=== PATIENT | female | born 1995 | race Caucasian/White ===

== ENCOUNTER → 2017-11-18 | Outpatient (CLI) | payer BC, SELFPAY ==
[~2017-11-18] MED LIST: BIRTH CONTROL; BIRTH CONTROL PILLS; CAMRESE 0.15-01 EACH PO; CLOBETASOL; Depo-Prove150 MG/11 IM; EXCEDRIN MIGRAINE; FIORICET 50-321 EACH PO; FLUC150A PO; NAPR500 PO; PROP60 PO
[2017-11-18 12:59] LABS: BASOPHILS ABSOLUTE AUTO 0.07 K/mm3 (0.00-0.23); BASOPHILS PERCENT AUTO 1 % (0-2); EOSINOPHILS ABSOLUTE AUTO 0.17 K/mm3 (0.00-0.68); EOSINOPHILS PERCENT AUTO 2 % (0-6); Hematocrit 40.8 % (33.0-51.0); Hemoglobin 13.6 g/dL (11.5-16.0); IMMATURE GRAN ABSOLUTE AUTO 0.02 K/mm3 (0.00-0.10); IMMATURE GRAN PERCENT AUTO 0 % (0-1); LYMPHOCYTES ABSOLUTE AUTO 2.68 K/mm3 (0.84-5.20); LYMPHOCYTES PERCENT AUTO 29 % (21-46); MONOCYTES ABSOLUTE AUTO 0.42 K/mm3 (0.16-1.47); MONOCYTES PERCENT AUTO 5 % (4-13); Mean Corpuscular HGB 29.3 pg (26.0-34.0); Mean Corpuscular HGB Conc 33.3 g/dL (31.5-36.5); Mean Corpuscular Volume 88 fL (80-100); Mean Platelet Volume 10.1 fL (9.1-12.4); NEUTROPHILS ABSOLUTE AUTO 5.91 K/mm3 (1.96-9.15); NEUTROPHILS PERCENT AUTO 64 % (41-73); Platelet Count 422 K/mm3 (150-400); RDW Coefficient Variation 12.4 % (11.7-14.2); Red Blood Cell Count 4.64 M/mm3 (3.80-5.20); White Blood Cell Count 9.27 K/mm3 (4.00-11.30)
[2017-11-18 13:17] LABS: Alanine Aminotransfer (ALT/SGP 32 U/L (12-78); Albumin, Blood 3.7 g/dL (3.4-5.0); Albumin/Globulin Ratio 0.9 (0.8-1.8); Alk Phos 96 U/L (50-136); Anion Gap 7 mmol/L (6-16); Aspartate Aminotrans (AST/SGOT 32 U/L (12-37); Bilirubin, Total 0.3 mg/dL (0.1-1.0); Blood Urea Nitrogen 13 mg/dL (8-24); Bun/Creatinine Ratio 20.8 (12.0-20.0); CO2, Blood 27 mmol/L (21-32); Calcium, Blood 9.3 mg/dL (8.5-10.1); Chloride, Blood 104 mmol/L (98-108); Creatinine, Blood 0.62 mg/dL (0.40-1.00); Globulin, Blood 3.9 g/dL (2.2-4.0); Glomerular Filtration Rate >60 (60-); Glucose, Blood 98 mg/dL (70-99); Potassium, Blood 3.9 mmol/L (3.5-5.5); Sodium, Blood 138 mmol/L (136-145); Total Protein, Blood 7.6 g/dL (6.4-8.2)
== END ==
LOC: OLS 12:21
PROVIDERS: Family Medicine
DX: R10.84 Generalized abdominal pain (principal)
CPT/HCPCS: 80053; 85025

== ENCOUNTER 2018-04-17 10:48 | Day surgery (SDC) | payer BC, SELFPAY ==
[~2018-04-17] VITALS: Ht 162.6 cm; Wt 85.3 kg
[~2018-04-17 10:48] MED LIST changes: -BIRTH CONTROL
== END 2018-04-17 22:46 | disposition home or self-care (01) ==
LOC: ORSCMMR 10:48 → ORD 12:30 → ORSCMMR 12:30
PROVIDERS: Internal Medicine Gastroenterology
PROC: 0DBE8ZX Excision of Large Intestine, Via Natural or Artificial Opening Endoscopic, Diagnostic (ICD-10-PCS; principal; 2018-04-17 12:30)
DX: K92.1 Melena (principal); K64.8 Other hemorrhoids; K52.9 Noninfective gastroenteritis and colitis, unspecified; R11.2 Nausea with vomiting, unspecified; E66.9 Obesity, unspecified; Z68.32 Body mass index [BMI] 32.0-32.9, adult; Z79.899 Other long term (current) drug therapy
CPT/HCPCS: 84702; 88305; J2405; J7120

== ENCOUNTER 2018-05-03 15:03 | Emergency (ER) | payer BC, SELFPAY ==
[~2018-05-03] VITALS: Ht 175.3 cm; Wt 81.2 kg
[2018-05-03] MEDS ORDERED: BIRTH CONTROL (15:16)
[2018-05-03 15:20] LABS: Calcium, Ionized (POC) 1.12 mmol/L (1.10-1.46); Chloride (POC) 108 mmol/L (98-108); Glucose (ISTAT POC) 95 mg/dL (70-99); Hemoglobin (POC) 11.6 g/dL (12.0-16.0); Potassium (POC) 3.7 mmol/L (3.5-5.5); Sodium (POC) 141 mmol/L (135-148); Total CO2 (POC) 22 mmol/L (21-32)
[2018-05-03 16:32] LABS: BASOPHILS ABSOLUTE AUTO 0.08 K/mm3 (0.00-0.23); BASOPHILS PERCENT AUTO 1 % (0-2); EOSINOPHILS ABSOLUTE AUTO 0.38 K/mm3 (0.00-0.68); EOSINOPHILS PERCENT AUTO 3 % (0-6); Hemoglobin 12.2 g/dL (11.5-16.0); IMMATURE GRAN ABSOLUTE AUTO 0.03 K/mm3 (0.00-0.10); IMMATURE GRAN PERCENT AUTO 0 % (0-1); LYMPHOCYTES ABSOLUTE AUTO 2.88 K/mm3 (0.84-5.20); LYMPHOCYTES PERCENT AUTO 25 % (21-46); MONOCYTES ABSOLUTE AUTO 0.71 K/mm3 (0.16-1.47); MONOCYTES PERCENT AUTO 6 % (4-13); Mean Corpuscular HGB 28.9 pg (26.0-34.0); Mean Corpuscular Volume 88 fL (80-100); Mean Platelet Volume 10.4 fL (9.1-12.4); NEUTROPHILS ABSOLUTE AUTO 7.39 K/mm3 (1.96-9.15); NEUTROPHILS PERCENT AUTO 64 % (41-73); Platelet Count 401 K/mm3 (150-400); RDW Coefficient Variation 12.6 % (11.7-14.2); RDW Standard Deviation 39.9 fL (35.1-46.3); Red Blood Cell Count 4.22 M/mm3 (3.80-5.20); White Blood Cell Count 11.47 K/mm3 (4.00-11.30)
== END 2018-05-03 16:45 | disposition home or self-care (01) ==
LOC: ER 15:03
PROVIDERS: Internal Medicine
DX: R55 Syncope and collapse (principal); Z79.899 Other long term (current) drug therapy
CPT/HCPCS: 36415; 80047; 85014; 85025; 93005; 93010; 99283

== ENCOUNTER → 2018-11-19 | Outpatient (CLI) | payer BC, SELFPAY ==
[~2018-11-19] MED LIST changes: +BIRTH CONTROL
[2018-11-19 12:43] LABS: BASOPHILS ABSOLUTE AUTO 0.07 K/mm3 (0.00-0.23); BASOPHILS PERCENT AUTO 1 % (0-2); EOSINOPHILS ABSOLUTE AUTO 0.15 K/mm3 (0.00-0.68); EOSINOPHILS PERCENT AUTO 1 % (0-6); Hemoglobin 13.9 g/dL (11.5-16.0); IMMATURE GRAN ABSOLUTE AUTO 0.04 K/mm3 (0.00-0.10); IMMATURE GRAN PERCENT AUTO 0 % (0-1); LYMPHOCYTES ABSOLUTE AUTO 3.05 K/mm3 (0.84-5.20); LYMPHOCYTES PERCENT AUTO 28 % (21-46); MONOCYTES ABSOLUTE AUTO 0.45 K/mm3 (0.16-1.47); MONOCYTES PERCENT AUTO 4 % (4-13); Mean Corpuscular HGB 29.3 pg (26.0-34.0); Mean Corpuscular HGB Conc 33.1 g/dL (31.5-36.5); Mean Corpuscular Volume 88 fL (80-100); Mean Platelet Volume 9.9 fL (9.1-12.4); NEUTROPHILS ABSOLUTE AUTO 7.28 K/mm3 (1.96-9.15); NEUTROPHILS PERCENT AUTO 66 % (41-73); Platelet Count 429 K/mm3 (150-400); RDW Coefficient Variation 12.2 % (11.7-14.2); Red Blood Cell Count 4.75 M/mm3 (3.80-5.20); White Blood Cell Count 11.04 K/mm3 (4.00-11.30)
[2018-11-19 13:38] LABS: Alanine Aminotransfer (ALT/SGP 20 U/L (12-78); Albumin, Blood 3.6 g/dL (3.4-5.0); Albumin/Globulin Ratio 0.9 (0.8-1.8); Alk Phos 106 U/L (50-136); Anion Gap 7 mmol/L (6-16); Aspartate Aminotrans (AST/SGOT 15 U/L (12-37); Bilirubin, Total 0.3 mg/dL (0.1-1.0); Blood Urea Nitrogen 11 mg/dL (8-24); Bun/Creatinine Ratio 15.4 (12.0-20.0); CO2, Blood 27 mmol/L (21-32); Calcium, Blood 8.8 mg/dL (8.5-10.1); Chloride, Blood 105 mmol/L (98-108); Creatinine, Blood 0.71 mg/dL (0.40-1.00); Globulin, Blood 3.9 g/dL (2.2-4.0); Glomerular Filtration Rate >60 (60-); Glucose, Blood 88 mg/dL (70-99); Potassium, Blood 3.8 mmol/L (3.5-5.5); Sodium, Blood 139 mmol/L (136-145); Total Protein, Blood 7.5 g/dL (6.4-8.2)
== END | disposition home or self-care (01) ==
LOC: LAB SHORT 12:28 → LAB 12:28
PROVIDERS: Nurse Practitioner
DX: N93.8 Other specified abnormal uterine and vaginal bleeding (principal)
CPT/HCPCS: 80053; 84443; 85025

== ENCOUNTER → 2018-11-26 | Outpatient (CLI) | payer BC, SELFPAY | END | disposition home or self-care (01) | LOC: LAB 08:20 → LAB SHORT 08:20 | PROVIDERS: Nurse Practitioner | DX: Z01.419 Encounter for gynecological examination (general) (routine) without abnormal findings (principal) | CPT/HCPCS: G0145 ==

== ENCOUNTER → 2019-02-04 | Outpatient (CLI) | payer BC ==
[2019-02-04 12:07] LABS: Anion Gap 9 mmol/L (6-16); Blood Urea Nitrogen 10 mg/dL (8-24); Bun/Creatinine Ratio 16.4 (12.0-20.0); CO2, Blood 24 mmol/L (21-32); Calcium, Blood 8.7 mg/dL (8.5-10.1); Chloride, Blood 106 mmol/L (98-108); Creatinine, Blood 0.61 mg/dL (0.40-1.00); Glomerular Filtration Rate >60 (60-); Glucose, Blood 154 mg/dL (70-99); Potassium, Blood 3.5 mmol/L (3.5-5.5); Sodium, Blood 139 mmol/L (136-145)
== END | disposition home or self-care (01) ==
LOC: LAB SHORT 11:30 → LAB 11:30 → EKG 11:30
PROVIDERS: Orthopaedic Surgery
DX: R00.0 Tachycardia, unspecified (principal)
CPT/HCPCS: 36415; 80048

== ENCOUNTER 2019-02-23 09:30 | Day surgery (SDC) | payer BC, SELFPAY ==
[~2019-02-23] VITALS: Ht 160 cm; Wt 73.1 kg
[~2019-02-23 09:30] MED LIST changes: +ALBU90OI6 INH; +CAMRESE 0.15-01 EAC1 PO; +Excedrin Extra1 EACH PO
--- NOTE | 2019-02-23 09:31 | NUR ---
02/23/19 0931 Samantha Joshi BLOOD DRAWN AND ANTICOAG ADDED TO PRP, DELIVERED TO OR AND SPUN.
[2019-02-23] MEDS ORDERED: Diclofenac Pota50 MG (09:54)
[2019-02-23] MEDS ORDERED: ESCI10 (09:54)
--- NOTE | 2019-02-23 13:01 | NUR ---
02/23/19 1301 Anabelle Vogel REPORT RECEIVED FROM DEANN FELIZ. PATIENT STABLE BUT SLIGHT DRY COUGH AND POST ANESTHESIA SHIVERS. PATIENT STATES NO TO PAIN AND NAUSEA WHEN ASKED AND TELLS ME SHE DOESN'T FEEL COLD SHE IS SHIVERING. PATIENT WAS ABLE TO TRANSFER TO RECLINER WITH MINIMAL ASSISTANCE AND WAS MADE COMFORTABLE AND GIVEN WARM BLANKETS. BROUGHT FAMILY, MOM AND DAD, BACK AND PATIENT GIVEN LIQUIDS TO DRINK. PATIENT STATES NO NEEDS AT THIS TIME. DR PEREIRA CAME INTO STEPDOWN AND SPOKE WITH PATIENT AND MOM. PATIENT STABLE AT THIS TIME, NO PAIN, NO NAUSEA, NO PROBLEMS. WILL PREPARE FOR DISCHARGE
== END 2019-02-23 13:50 | disposition home or self-care (01) ==
LOC: ORSCSDS 09:30
PROVIDERS: Orthopaedic Surgery
PROC: 0LQ14ZZ Repair Right Shoulder Tendon, Percutaneous Endoscopic Approach (ICD-10-PCS; principal; 2019-02-23 11:00)
DX: M75.111 Incomplete rotator cuff tear or rupture of right shoulder, not specified as traumatic (principal); M75.51 Bursitis of right shoulder; Z79.899 Other long term (current) drug therapy; Z79.82 Long term (current) use of aspirin
CPT/HCPCS: C1713; J0171; J0690; J1100; J1885; J2250; J2405; J2704; J2710; J2795; J3010; J7120

== ENCOUNTER → 2020-01-05 | Outpatient (CLI) | payer BC ==
[~2020-01-05] MED LIST changes: +Diclofenac Pota50 MG; +ESCI10
== END | disposition home or self-care (01) ==
LOC: LAB SHORT 16:34 → LAB 16:34
PROVIDERS: Nurse Practitioner
DX: Z01.419 Encounter for gynecological examination (general) (routine) without abnormal findings (principal)
CPT/HCPCS: G0145

== ENCOUNTER 2021-11-15 11:54 | Emergency (ER) | payer OTHER ==
[~2021-11-15] VITALS: Ht 160 cm; Wt 86.2 kg
== END 2021-11-15 12:59 | disposition home or self-care (01) ==
LOC: ER 11:54
DX: S06.0X9A Concussion with loss of consciousness of unspecified duration, initial encounter (principal); W22.8XXA Striking against or struck by other objects, initial encounter
CPT/HCPCS: 99283

== ENCOUNTER 2022-08-11 00:11 | Observation (INO) | payer BC ==
[~2022-08-11] VITALS: Ht 160 cm; Wt 87.5 kg
[2022-08-11] MEDS ORDERED: OMEP20ER PO (00:17)
[2022-08-11 00:45] LABS: BASOPHILS PERCENT AUTO 1 % (0-2); EOSINOPHILS ABSOLUTE AUTO 0.31 K/mm3 (0.00-0.68); EOSINOPHILS PERCENT AUTO 2 % (0-6); Hematocrit 38.9 % (33.0-51.0); Hemoglobin 13.2 g/dL (11.5-16.0); Mean Corpuscular HGB 27.6 pg (26.0-34.0); Mean Corpuscular HGB Conc 33.9 g/dL (31.5-36.5); Mean Corpuscular Volume 81 fL (80-100); Mean Platelet Volume 9.7 fL (9.1-12.4); Platelet Count 443 K/mm3 (150-400); RDW Coefficient Variation 12.6 % (11.7-14.2); RDW Standard Deviation 37.3 fL (35.1-46.3); Red Blood Cell Count 4.79 M/mm3 (3.80-5.20); White Blood Cell Count 14.25 K/mm3 (4.00-11.30)
[2022-08-11 00:47] LABS: IMMATURE GRAN ABSOLUTE AUTO 0.03 K/mm3 (0.00-0.10); IMMATURE GRAN PERCENT AUTO 0 % (0-1); LYMPHOCYTES ABSOLUTE AUTO 4.03 K/mm3 (0.84-5.20); LYMPHOCYTES PERCENT AUTO 28 % (21-46); MONOCYTES ABSOLUTE AUTO 0.69 K/mm3 (0.16-1.47); MONOCYTES PERCENT AUTO 5 % (4-13); NEUTROPHILS ABSOLUTE AUTO 9.09 K/mm3 (1.96-9.15); NEUTROPHILS PERCENT AUTO 64 % (41-73)
[2022-08-11 01:07] LABS: Beta HCG, Quantitative, Serum <1 mIU/mL (0-3); Magnesium, Blood 2.1 mg/dL (1.6-2.4)
[2022-08-11 01:10] LABS: Alanine Aminotransfer (ALT/SGP 30 U/L (12-78); Albumin, Blood 3.2 g/dL (3.4-5.0); Albumin/Globulin Ratio 0.7 (0.8-1.8); Alk Phos 161 U/L (50-136); Anion Gap 9 mmol/L (6-16); Aspartate Aminotrans (AST/SGOT 18 U/L (12-37); Bilirubin, Direct <0.1 mg/dL (0.0-0.3); Bilirubin, Indirect Unable to Calculate mg/dL (0.1-0.7); Bilirubin, Total 0.2 mg/dL (0.1-1.0); Blood Urea Nitrogen 5 mg/dL (8-24); Bun/Creatinine Ratio 8.5 (12.0-20.0); CO2, Blood 25 mmol/L (21-32); Calcium, Blood 8.8 mg/dL (8.5-10.1); Chloride, Blood 107 mmol/L (98-108); Creatinine, Blood 0.59 mg/dL (0.40-1.00); Globulin, Blood 4.3 g/dL (2.2-4.0); Glomerular Filtration Rate 127 (60-); Glucose, Blood 115 mg/dL (70-99); Potassium, Blood 3.4 mmol/L (3.5-5.5); Sodium, Blood 141 mmol/L (136-145); Total Protein, Blood 7.5 g/dL (6.4-8.2)
[2022-08-11 01:39] LABS: Influenza A, PCR NEGATIVE (NEGATIVE); Influenza B, PCR NEGATIVE (NEGATIVE); Resp Syncytial Virus, PCR NEGATIVE (NEGATIVE); SARS-Cov-2 (COVID-19) PCR, MMC NEGATIVE (NEGATIVE)
--- NOTE | 2022-08-11 08:33 | NUR ---
PATIENT CAME FROM ER TODAY AT 0825. PATIENT IS A&OX4. VS ARE WNL AND IS ON RA. PATIENT REPORTS A 5/10 PAIN AT THIS TIME AND IS MANAGED WITH IV MORPHINE. ABD IS TENDER TO TOUCH AND HAS HYPOACTIVE BOWEL TONES. SHE IS VOIDING AND PASSING GAS THOUGH. FIANCE IS AT BEDSIDE. CALL LIGHT WITHIN REACH. PATIENT IS NPO.
--- NOTE | 2022-08-11 12:12 | NUR ---
PATIENT JUST LEFT FOR THE OR.
--- NOTE | 2022-08-11 14:49 | NUR ---
PATIENT CAME BACK FROM PACU TODAY AT 1440. POD 0 LAP GREGORIA PATIENT IS A&OX4. VS ARE WNL AND IS ON RA. PATIENT DENIES PAIN AT THIS TIME. SHE HAS 3 LAP SITES ON HER ABD WITH 2 OUT OF 3 HAVING SCANT BLOOD BUT ARE OTHERWISE C/D/I. ABD IS SOFT BUT TENDER TO TOUCH. WATER AND CRACKERS ARE AT BEDSIDE FOR WHEN THE PATIENT WAKES UP AGAIN. FAMILY AT BEDSIDE. CALL LIGHT WITHIN REACH.
--- NOTE | 2022-08-11 17:55 | NUR ---
SHIFT SUMMARY: POD 0 LAP GREGORIA PATIENT IS A&OX4. VS ARE WNL AND IS ON RA. PATIENT REPORTS 8/10 PAINFUL WITH NAUSEA BUT IV DILAUDID AND PHENERGAN THAT HAS MANAGED PAIN/NAUSEA. SHE HAS 4 ABD LAP SITES WITH STERI STRIPS THAT HAVE SCANT AMOUNT OF BLOOD BUT OTHERWISE ARE INTACT. SHE TOLERATES VERY SMALL SIPS OF WATER. PATIENT IS A SBA TO THE BATHROOM. SHE IS VOIDING/PASSING SMALL AMOUNTS OF GAS. CALLS APPROPRIATELY. CALL LIGHT WITHIN REACH. THE PLAN IS FOR HER TO HAVE HER NAUSEA AND PAIN MANAGED FOR TOMORROW. POSSIBLE DISCHARGE IN THE MORNING IF NAUSEA AND PAIN IS MANAGED.
--- NOTE | 2022-08-12 05:11 | NUR ---
SHIFT SUMMARY PT A&OX4, PLEASANT AND COOPERATIVE. NO ACUTE CHANGES, HAS BEEN A LITTLE TACHYCARDIC, BUT PT STATES THAT'S NORMAL FOR HER. MEDICATED FOR PAIN PER EMAR. TOLERATING PO INTAKE, NO NAUSEA. INDEPENDENT IN ROOM. STERI STRIPS IN THE RLQ HAVE SCANT AMOUNT OF DRIED BLOOD ON THEM, OTHERS C/D/I. CALLS APPROPRIATELY CALL LIGHT WITHIN REACH.
[2022-08-12] MEDS ORDERED: OXYC10TA19 PO (10:52)
--- NOTE | 2022-08-12 11:39 | NUR ---
DISCHARGING DC'D IV, CATHETER INTACT. REVIEWED DC INSTRUCTIONS W/PT; VERBALIZED UNDERSTANDING. PT AMBULATING IN ROOM, GATHERING POSSESSIONS. WILL CALL FOR WC WHEN RIDE ARRIVES.
--- NOTE | 2022-08-12 12:48 | NUR ---
DISCHARGED PT LEFT UNIT IN WC W/POSSESSIONS AND DC PAPERWORK IN HAND.
== END 2022-08-12 12:01 | disposition home or self-care (01) ==
LOC: ER 00:11 → SURS 00:12
PROVIDERS: Student in an Organized Health Care Education/Training Program; ADMIT Surgery
DX: K80.10 Calculus of gallbladder with chronic cholecystitis without obstruction (principal); E87.6 Hypokalemia; G43.909 Migraine, unspecified, not intractable, without status migrainosus; K21.9 Gastro-esophageal reflux disease without esophagitis; E66.9 Obesity, unspecified; Z68.34 Body mass index [BMI] 34.0-34.9, adult; Z79.82 Long term (current) use of aspirin; Z20.822 Contact with and (suspected) exposure to COVID-19
CPT/HCPCS: 0241U; 36415; 74177; 76705; 80048; 80076; 83690; 83735; 84702; 85025; 88304; 96361; 96365; 96366; 96375; 96376; 99284-25; A9270; G0378; J0690; J1100; J1170; J1885; J2250; J2270; J2405; J2543; J2550; J2704; J2795; J3010; J7030; J7120; Q9967

== ENCOUNTER → 2024-04-09 | Outpatient (CLI) | payer BC ==
[~2024-04-09] MED LIST changes: +METO10 PO; +OMEP20ER PO; +OXYC10TA19 PO; +PRENATAL TABLE1 EAC2; +PROG100; +PROM12.5S PR
[2024-04-09 16:42] LABS: Source, Urine Clean Catch
[2024-04-09 19:01] LABS: Appearance, Urine Clear (Clear); Bilirubin, Urine Neg (Neg); Blood, Urine Neg (Neg); Glucose Qualitative, Urine Neg (Neg); Ketones, Urine Neg (Neg); Leukocyte Esterase, Urine Neg (Neg); Nitrite, Urine Neg (Neg); Protein, Urine Neg (Neg); Urobilinogen, Urine NORM (Normal)
[2024-04-09 19:05] LABS: BASOPHILS ABSOLUTE AUTO 0.09 K/mm3 (0.00-0.23); BASOPHILS PERCENT AUTO 1 % (0-2); EOSINOPHILS ABSOLUTE AUTO 0.15 K/mm3 (0.00-0.68); EOSINOPHILS PERCENT AUTO 1 % (0-6); Hematocrit 38.4 % (33.0-51.0); IMMATURE GRAN ABSOLUTE AUTO 0.05 K/mm3 (0.00-0.10); IMMATURE GRAN PERCENT AUTO 0 % (0-1); LYMPHOCYTES ABSOLUTE AUTO 2.79 K/mm3 (0.84-5.20); LYMPHOCYTES PERCENT AUTO 21 % (21-46); MONOCYTES ABSOLUTE AUTO 0.59 K/mm3 (0.16-1.47); MONOCYTES PERCENT AUTO 4 % (4-13); Mean Corpuscular HGB 28.4 pg (26.0-34.0); Mean Corpuscular HGB Conc 33.9 g/dL (31.5-36.5); Mean Corpuscular Volume 84 fL (80-100); Mean Platelet Volume 10.3 fL (9.1-12.4); NEUTROPHILS ABSOLUTE AUTO 9.92 K/mm3 (1.96-9.15); NEUTROPHILS PERCENT AUTO 73 % (41-73); Platelet Count 395 K/mm3 (150-400); RDW Coefficient Variation 12.7 % (11.7-14.2); RDW Standard Deviation 38.6 fL (35.1-46.3); Red Blood Cell Count 4.58 M/mm3 (3.80-5.20); White Blood Cell Count 13.59 K/mm3 (4.00-11.30)
[2024-04-09 19:13] LABS: Color, Urine Pale Yellow (P-Yellow)
[2024-04-12 08:17] LABS: HEPATITIS B SURFACE ANTIGEN Negative (Negative)
[2024-04-12 08:37] LABS: HIV 1,2 COMBO ANTIGEN/ANTIBODY Negative (Negative)
[2024-04-12 10:10] LABS: HEPATITIS C AB CIA INTERP Negative (Negative); HEPATITIS C ANTIBODY CIA INDEX 0.06 IV
== END ==
LOC: LAB SHORT 16:39 → LAB 16:39
PROVIDERS: Registered Nurse Community Health
DX: Z34.91 Encounter for supervision of normal pregnancy, unspecified, first trimester (principal)
CPT/HCPCS: 81003; 84443; 86803; 87086; 87340; 87389

== ENCOUNTER → 2024-04-13 | Outpatient (CLI) | payer BC ==
[2024-04-15 11:23] LABS: APTIMA MEDIA TYPE Urine; C. TRACHOMATIS BY TMA Negative (Negative); N. GONORRHOEAE BY TMA Negative (Negative); SPECIMEN SOURCE Urine
== END | disposition home or self-care (01) ==
LOC: LAB SHORT 13:17 → LAB 13:17
PROVIDERS: Registered Nurse Community Health
DX: Z34.91 Encounter for supervision of normal pregnancy, unspecified, first trimester (principal)
CPT/HCPCS: 87491; 87591

== ENCOUNTER 2024-04-20 01:13 | Emergency (ER) | payer BC ==
[~2024-04-20] VITALS: Ht 160 cm; Wt 93.9 kg
[~2024-04-20 01:13] MED LIST changes: -METO10 PO; -PRENATAL TABLE1 EAC2; -PROG100; -PROM12.5S PR
[2024-04-20] MEDS ORDERED: PROG100 (01:23)
[2024-04-20] MEDS ORDERED: PRENATAL TABLE1 EAC2 (01:23)
[2024-04-20] MEDS ORDERED: Metoclopramide HCl 5MG / ML 2ML Vial IV ONE (01:35)
[2024-04-20] MEDS ORDERED: D5W-NS 1,000 ML IV SCH (01:35)
[2024-04-20] MEDS ORDERED: DiphenhydrAMINE HCl 50 MG/ML 1ML Vial IV ONE (01:35)
[2024-04-20 02:04] LABS: Albumin/Globulin Ratio 0.7 (0.8-1.8); Bilirubin, Total 0.4 mg/dL (0.1-1.0); Bun/Creatinine Ratio 18.8 (12.0-20.0); Calcium, Blood 8.9 mg/dL (8.5-10.1); Creatinine, Blood 0.48 mg/dL (0.40-1.00); Globulin, Blood 4.2 g/dL (2.2-4.0); Magnesium, Blood 1.8 mg/dL (1.6-2.4); Potassium, Blood 3.9 mmol/L (3.5-5.5); Total Protein, Blood 7.2 g/dL (6.4-8.2)
[2024-04-20 02:08] LABS: BASOPHILS ABSOLUTE AUTO 0.06 K/mm3 (0.00-0.23); BASOPHILS PERCENT AUTO 0 % (0-2); EOSINOPHILS ABSOLUTE AUTO 0.04 K/mm3 (0.00-0.68); EOSINOPHILS PERCENT AUTO 0 % (0-6); Hemoglobin 13.5 g/dL (11.5-16.0); IMMATURE GRAN ABSOLUTE AUTO 0.13 K/mm3 (0.00-0.10); IMMATURE GRAN PERCENT AUTO 1 % (0-1); LYMPHOCYTES ABSOLUTE AUTO 0.75 K/mm3 (0.84-5.20); LYMPHOCYTES PERCENT AUTO 4 % (21-46); MONOCYTES ABSOLUTE AUTO 0.35 K/mm3 (0.16-1.47); MONOCYTES PERCENT AUTO 2 % (4-13); Mean Corpuscular HGB Conc 33.8 g/dL (31.5-36.5); Mean Corpuscular Volume 86 fL (80-100); Mean Platelet Volume 9.8 fL (9.1-12.4); NEUTROPHILS PERCENT AUTO 94 % (41-73); Platelet Count 308 K/mm3 (150-400); RDW Coefficient Variation 12.8 % (11.7-14.2); RDW Standard Deviation 39.7 fL (35.1-46.3); Red Blood Cell Count 4.66 M/mm3 (3.80-5.20); White Blood Cell Count 20.03 K/mm3 (4.00-11.30)
[2024-04-20] MEDS ORDERED: Mag Hydrox/AL Hydrox/Simeth 30 ML UDC PO ONE (02:20)
[2024-04-20] MEDS ORDERED: Famotidine 10 MG/ML 2ML Vial IV ONE (02:20)
[2024-04-20] MEDS ORDERED: Prochlorperazine Edisylate 10 mg Vial IV ONE (03:15)
[2024-04-20 03:23] LABS: Influenza A, PCR NEGATIVE (NEGATIVE); Influenza B, PCR NEGATIVE (NEGATIVE); Resp Syncytial Virus, PCR NEGATIVE (NEGATIVE); SARS-Cov-2 (COVID-19) PCR, MMC NEGATIVE (NEGATIVE)
[2024-04-20] MEDS ORDERED: Lactated Ringer's 1,000 ML IV ONE (04:25)
[2024-04-20] MEDS ORDERED: Ondansetron HCl 2 MG / ML 2ML Vial IV ONE (04:25)
[2024-04-20 05:15] VITALS: BP 108/65
[2024-04-20] MEDS ORDERED: PROM12.5S PR (06:35)
[2024-04-20] MEDS ORDERED: METO10 PO (06:35)
== END 2024-04-20 06:43 | disposition home or self-care (01) ==
LOC: ER 01:13
PROVIDERS: Student in an Organized Health Care Education/Training Program
DX: O99.611 Diseases of the digestive system complicating pregnancy, first trimester (principal); A08.4 Viral intestinal infection, unspecified; O99.281 Endocrine, nutritional and metabolic diseases complicating pregnancy, first trimester; E86.0 Dehydration; Z3A.11 11 weeks gestation of pregnancy; Z79.82 Long term (current) use of aspirin; Z79.899 Other long term (current) drug therapy
CPT/HCPCS: 0241U; 80053; 83690; 83735; 85025; 96361; 96374; 96375; 99284-25; A9270; J0780; J1200; J2405; J2765; J7042; J7120

== ENCOUNTER → 2024-08-24 | Outpatient (CLI) | payer BC ==
[~2024-08-24] MED LIST changes: +METO10 PO; +PRENATAL TABLE1 EAC2; +PROG100; +PROM12.5S PR
[2024-08-24 16:14] LABS: Hematocrit 34.7 % (33.0-51.0); Hemoglobin 11.5 g/dL (11.5-16.0)
== END ==
LOC: LAB 13:44 → LAB SHORT 13:44
PROVIDERS: Registered Nurse Community Health
DX: Z34.93 Encounter for supervision of normal pregnancy, unspecified, third trimester (principal)
CPT/HCPCS: 82950; 85014; 85018

== ENCOUNTER → 2024-10-21 | Outpatient (CLI) | payer BC ==
[~2024-10-21] MED LIST changes: +CRANBERRY215 MG PO; +K2-D3 MAX 180-1 EACH PO; +ZYRTEC10 M4 PO
== END | disposition home or self-care (01) ==
LOC: LAB 13:35 → LAB SHORT 13:35
DX: Z34.03 Encounter for supervision of normal first pregnancy, third trimester (principal)
CPT/HCPCS: 87081; 87150

== ENCOUNTER 2024-10-28 14:47 | Inpatient (IN) | payer BC ==
[~2024-10-28] VITALS: Ht 160 cm; Wt 110.7 kg
[2024-10-28] VITALS (29 sets, daily range): BP systolic 119–154; BP diastolic 68–94
[~2024-10-28 14:47] MED LIST changes: -CRANBERRY215 MG PO; -K2-D3 MAX 180-1 EACH PO; -ZYRTEC10 M4 PO
[2024-10-28] MEDS ORDERED: Lactated Ringer's 1,000 ML IV SCH ×2 (16:35)
[2024-10-28] MEDS ORDERED: ePHEDrine Sulfate 50 MG/ML 1ML Injection XX PRN (16:35)
[2024-10-28] MEDS ORDERED: FentaNYL 2mcg/ml-Bup 0.1% Epd 250 ML EPI PRN (16:35)
[2024-10-28] MEDS ORDERED: Acetaminophen 500 MG Tab PO PRN (16:40)
[2024-10-28] MEDS ORDERED: Ondansetron HCl 2 MG / ML 2ML Vial IV PRN (16:40)
[2024-10-28] MEDS ORDERED: Oxytocin 10 Unit / ML Vial IM PRN (16:40)
[2024-10-28] MEDS ORDERED: Misoprostol 200 MCG Tab BC PRN (16:40)
[2024-10-28] MEDS ORDERED: Carboprost Tromethamine 250 MCG/ML 1ML Amp IM PRN (16:40)
[2024-10-28] MEDS ORDERED: OXYTOCIN/RINGER'S LACTATE 500 ML IV PRN (16:40)
[2024-10-28] MEDS ORDERED: Methylergonovine Maleate 0.2MG / ML 1ML Amp IM PRN (16:40)
[2024-10-28] MEDS ORDERED: Misoprostol 200 MCG Tab PR PRN (16:40)
[2024-10-28] MEDS ORDERED: Labetalol HCL 100 MG TAB PO ONE (16:45)
[2024-10-28] MEDS ORDERED: Calcium Carbonate 500 MG Tab Chew PO SCH (16:45)
[2024-10-28] MEDS ORDERED: Tranexamic Acid 1,000 MG in NS 100 ML IV SCH (16:50)
[2024-10-28] MEDS ORDERED: K2-D3 MAX 180-1 EACH PO (17:00)
[2024-10-28] MEDS ORDERED: ZYRTEC10 M4 PO (17:00)
[2024-10-28] MEDS ORDERED: CRANBERRY215 MG PO (17:01)
[2024-10-28 17:09] LABS: BASOPHILS ABSOLUTE AUTO 0.06 K/mm3 (0.00-0.23); BASOPHILS PERCENT AUTO 0 % (0-2); EOSINOPHILS ABSOLUTE AUTO 0.06 K/mm3 (0.00-0.68); EOSINOPHILS PERCENT AUTO 0 % (0-6); Hematocrit 38.8 % (33.0-51.0); IMMATURE GRAN ABSOLUTE AUTO 0.12 K/mm3 (0.00-0.10); IMMATURE GRAN PERCENT AUTO 1 % (0-1); LYMPHOCYTES ABSOLUTE AUTO 2.19 K/mm3 (0.84-5.20); LYMPHOCYTES PERCENT AUTO 14 % (21-46); MONOCYTES ABSOLUTE AUTO 0.58 K/mm3 (0.16-1.47); MONOCYTES PERCENT AUTO 4 % (4-13); Mean Corpuscular HGB 27.8 pg (26.0-34.0); Mean Corpuscular HGB Conc 33.5 g/dL (31.5-36.5); Mean Corpuscular Volume 83 fL (80-100); Mean Platelet Volume 11.5 fL (9.1-12.4); NEUTROPHILS ABSOLUTE AUTO 12.31 K/mm3 (1.96-9.15); NEUTROPHILS PERCENT AUTO 80 % (41-73); Platelet Count 278 K/mm3 (150-400); RDW Coefficient Variation 14.6 % (11.7-14.2); RDW Standard Deviation 43.7 fL (35.1-46.3); Red Blood Cell Count 4.68 M/mm3 (3.80-5.20); White Blood Cell Count 15.32 K/mm3 (4.00-11.30)
--- NOTE | 2024-10-28 18:14 | NUR ---
1730- Report received and care assumed at this time.
[2024-10-28 18:53] LABS: Albumin, Blood 2.7 g/dL (3.4-5.0); Albumin/Globulin Ratio 0.6 (0.8-1.8); Bilirubin, Total 0.3 mg/dL (0.1-1.0); Bun/Creatinine Ratio 14.9 (12.0-20.0); Calcium, Blood 9.9 mg/dL (8.5-10.1); Creatinine, Blood 0.6 mg/dL (0.40-1.00); Globulin, Blood 4.7 g/dL (2.2-4.0); Potassium, Blood 3.9 mmol/L (3.5-5.5); Total Protein, Blood 7.4 g/dL (6.4-8.2)
--- NOTE | 2024-10-28 21:08 | NUR ---
191 report and handoff given by Nelsy Skelton RN
[2024-10-28] MEDS ORDERED: OXYTOCIN/RINGER'S LACTATE 500 ML IV SCH (21:45)
[2024-10-29] VITALS (81 sets, daily range): BP systolic 118–178; BP diastolic 55–108
[2024-10-29] MEDS ORDERED: FentaNYL Citrate 50 MCG/ML 2 ML Injection ONE (06:06)
[2024-10-29] MEDS ORDERED: FentaNYL Citrate 50 MCG/ML 2 ML Injection IV ONE ×2 (06:10→10:20)
[2024-10-29] MEDS ORDERED: Labetalol HCL 5 MG/ML 4ML Injection (Single Dose) ONE (08:19)
[2024-10-29] MEDS ORDERED: Magnesium Sulf 2 GM/Water 50ML 50 ML IV SCH (08:30)
[2024-10-29] MEDS ORDERED: Labetalol HCL 5 MG/ML 4ML Injection (Single Dose) IV ONE (08:30)
[2024-10-29] MEDS ORDERED: Magnesium Sulfate 500 ML IV SCH ×2 (08:30→13:15)
[2024-10-29] MEDS ORDERED: Magnesium Sul 4 GM/Water100 ML 100 ML IV ONE ×2 (08:30→13:15)
[2024-10-29] MEDS ORDERED: Bupivacaine HCl 0.25% 30 ML Injection EPI SCH (08:40)
--- NOTE | 2024-10-29 08:48 | NUR ---
0808- T.R. TO DR. COVARRUBIAS REGARDING BP'S AND NO LABETALOL PO ORDER. ORDER RECEIVED FOR LABETALOL TID. PT REPORTING SEVERE PAIN WITH EPIDURAL. 0830- T.R. TO DR. COVARRUBIAS AGAIN REGARDING SEVERE RANGE BP'S X2. LABETALOL PO PREVIOUSLY GIVEN. BP WITHIN RANGE DURING PHONE CALL. PT STILL REPORTING SEVERE PAIN. PLAN FOR PO NIFEDIPINE AND CONTINUE TO MONITOR BP'S. SVE UPDATE GIVEN TO DR. COVARRUIBAS. HOLD OFF ON MAGNESIUM AT THIS TIME D/T PATIENT'S PAIN LEVEL.
[2024-10-29 08:50] LABS: BASOPHILS ABSOLUTE AUTO 0.03 K/mm3 (0.00-0.23); BASOPHILS PERCENT AUTO 0 % (0-2); EOSINOPHILS ABSOLUTE AUTO 0.03 K/mm3 (0.00-0.68); EOSINOPHILS PERCENT AUTO 0 % (0-6); Hematocrit 37.6 % (33.0-51.0); Hemoglobin 12.5 g/dL (11.5-16.0); IMMATURE GRAN ABSOLUTE AUTO 0.08 K/mm3 (0.00-0.10); IMMATURE GRAN PERCENT AUTO 1 % (0-1); LYMPHOCYTES ABSOLUTE AUTO 1.34 K/mm3 (0.84-5.20); LYMPHOCYTES PERCENT AUTO 11 % (21-46); MONOCYTES ABSOLUTE AUTO 0.39 K/mm3 (0.16-1.47); MONOCYTES PERCENT AUTO 3 % (4-13); Mean Corpuscular HGB 27.8 pg (26.0-34.0); Mean Corpuscular HGB Conc 33.2 g/dL (31.5-36.5); Mean Corpuscular Volume 84 fL (80-100); Mean Platelet Volume 11.2 fL (9.1-12.4); NEUTROPHILS ABSOLUTE AUTO 10.95 K/mm3 (1.96-9.15); NEUTROPHILS PERCENT AUTO 86 % (41-73); Platelet Count 254 K/mm3 (150-400); RDW Coefficient Variation 14.7 % (11.7-14.2); RDW Standard Deviation 45.1 fL (35.1-46.3); Red Blood Cell Count 4.49 M/mm3 (3.80-5.20); White Blood Cell Count 12.82 K/mm3 (4.00-11.30)
[2024-10-29] MEDS ORDERED: NIFEdipine 10 MG Cap PO ONE (08:50)
[2024-10-29] MEDS ORDERED: Labetalol HCL 100 MG TAB PO SCH ×2 (09:00→14:00)
[2024-10-29] MEDS ORDERED: Labetalol HCL 5 MG/ML 4ML Injection (Single Dose) IV PRN ×2 (09:05)
[2024-10-29 09:09] LABS: Albumin, Blood 2.5 g/dL (3.4-5.0); Albumin/Globulin Ratio 0.6 (0.8-1.8); Bilirubin, Total 0.4 mg/dL (0.1-1.0); Bun/Creatinine Ratio 11.8 (12.0-20.0); Calcium, Blood 9.2 mg/dL (8.5-10.1); Creatinine, Blood 0.68 mg/dL (0.40-1.00); Globulin, Blood 4.4 g/dL (2.2-4.0); Potassium, Blood 4.2 mmol/L (3.5-5.5); Total Protein, Blood 6.9 g/dL (6.4-8.2)
[2024-10-29 09:54] LABS: International Normalized Ratio 0.91; Prothrombin Time Results 9.8 Sec (9.7-11.5)
[2024-10-29] MEDS ORDERED: CeFAZolin Sodium 2,000 MG in NS 100 ML IV ONE (10:55)
[2024-10-29] MEDS ORDERED: FLU VACC TS2024-25(6MOS UP)/PF 45 MCG/0.5 ML SYRINGE IM SCH (12:45)
[2024-10-29] MEDS ORDERED: Lactated Ringer's 1,000 ML IV SCH (12:45)
[2024-10-29] MEDS ORDERED: Witch Hazel/Glycerin PADS TOP PRN (12:45)
[2024-10-29] MEDS ORDERED: Benzocaine Topical Anesthetic Spray 60GM TOP PRN (12:50)
[2024-10-29] MEDS ORDERED: Ibuprofen 400 MG Tab PO PRN (12:50)
[2024-10-29] MEDS ORDERED: Acetaminophen 325 MG TABLET PO PRN (12:50)
[2024-10-29] MEDS ORDERED: Simethicone 80 MG Chew PO PRN (12:50)
[2024-10-29] MEDS ORDERED: HYDROcodone 5-APAP 325 TAB PO PRN (13:00)
[2024-10-29] MEDS ORDERED: HYDROcodone 5-APAP 325 TAB PO ONE (13:00)
[2024-10-29] MEDS ORDERED: Ketorolac Tromethamine 30mg Vial IV SCH ×2 (16:15→18:00)
[2024-10-29] MEDS ORDERED: Docusate Sodium 100 MG Cap PO SCH ×2 (16:20→21:00)
[2024-10-29] MEDS ORDERED: Polyethylene Glycol 3350 17 gm PO SCH ×2 (16:20→21:00)
--- NOTE | 2024-10-29 16:58 | NUR ---
T.R TO DR. COVARRUBIAS REGARDING PATIENT'S HR - ELEVATED TO 120'S AT TIMES. MESSAGE LEFT.
--- NOTE | 2024-10-29 17:09 | NUR ---
1445- PT'S LUNGS CLEAR, DTR'S 2+, ALERT AND ORIENTED. PT DENIES ANY HEADACHE, VISUAL DISTURBANCES OR EPIGASTRIC PAIN.
--- NOTE | 2024-10-29 17:10 | NUR ---
1605- LUNGS CLEAR. DTR'S 2+. PATIENT ALERT AND ORIENTED.
--- NOTE | 2024-10-29 17:53 | NUR ---
PREVIOUSLY NOTIFIED DR. COVARRUBIAS OF ELEVATED HR 110-120'S. NEW ORDER RECEIVED.
--- NOTE | 2024-10-29 18:32 | NUR ---
LUNGS CLEAR, DTR'S 2+, PATIENT ALERT AND ORIENTED
[2024-10-30] VITALS (10 sets, daily range): BP systolic 94–137; BP diastolic 50–78
[2024-10-30 07:01] LABS: Hematocrit 29.2 % (33.0-51.0); Hemoglobin 9.6 g/dL (11.5-16.0); Mean Corpuscular HGB 27.8 pg (26.0-34.0); Mean Corpuscular HGB Conc 32.9 g/dL (31.5-36.5); Mean Corpuscular Volume 85 fL (80-100); Mean Platelet Volume 11.6 fL (9.1-12.4); Platelet Count 220 K/mm3 (150-400); Red Blood Cell Count 3.45 M/mm3 (3.80-5.20); White Blood Cell Count 12.43 K/mm3 (4.00-11.30)
[2024-10-30] MEDS ORDERED: Ketorolac Tromethamine 30mg Vial IV ONE (07:20)
[2024-10-30] MEDS ORDERED: Prenatal Vit/FE Fumarate/FA 1 Tab PO SCH ×2 (09:00)
[2024-10-30] MEDS ORDERED: Magnesium Hydroxide Conc 10 ML UDC PO SCH (09:00)
--- NOTE | 2024-10-30 09:18 | NUR ---
0800- LUNGS CLEAR, DTR'S 2+, PATIENT ALERT AND ORIENTED. PT DENIES SANTAMARIA, VISUAL DISTURBANCE OR EPIGASTRIC PAIN AT THIS TIME.
--- NOTE | 2024-10-30 10:21 | NUR ---
1020- LUNGS CLEAR. PATIENT ALERT AND ORIENTED. DTR'S 2+. PATIENT DENIES SANTAMARIA, VISUAL CHANGES OR EPIGASTRIC PAIN.
[2024-10-30] MEDS ORDERED: Metoclopramide HCl 10 MG Tab PO SCH (11:00)
[2024-10-30] MEDS ORDERED: Sennosides 8.6 MG Tab PO SCH (11:00)
[2024-10-30] MEDS ORDERED: CeFAZolin Sodium 2,000 MG in NS 100 ML IV ONE (11:10)
[2024-10-30] MEDS ORDERED: FentaNYL Citrate 50 MCG/ML 2 ML Injection IV PRN (11:20)
--- NOTE | 2024-10-30 11:50 | NUR ---
PATIENT PUMPING X15 MIN EACH BREAST
--- NOTE | 2024-10-30 14:45 | NUR ---
1045 - MAGNESIUM SULFATE INFUSION STOPPED PER DR. COVARRUBIAS
[2024-10-31] VITALS (7 sets, daily range): BP systolic 120–140; BP diastolic 63–86
[2024-10-31] MEDS ORDERED: LABE100 PO (13:53)
[2024-10-31] MEDS ORDERED: AMOX875 PO (14:04)
[2024-10-31] MEDS ORDERED: DOCU100 PO (14:04)
[2024-10-31] MEDS ORDERED: IBU800 MG PO (14:05)
[2024-10-31] MEDS ORDERED: Norco 5-325 Ta1 EACH PO (14:05)
[2024-10-31] MEDS ORDERED: MIRALAX17 GM PO (14:06)
[2024-10-31] MEDS ORDERED: METO10 PO (14:06)
== END 2024-10-31 14:28 | disposition home or self-care (01) | DRG 768 ==
LOC: OBS 14:47 → BC 14:48 → OBS 16:14 → BC 19:33
PROVIDERS: Family Medicine; Student in an Organized Health Care Education/Training Program; ADMIT Registered Nurse Community Health
PROC: 10E0XZZ Delivery of Products of Conception, External Approach (ICD-10-PCS; principal; 2024-10-29)
PROC: 0DQP0ZZ Repair Rectum, Open Approach (ICD-10-PCS; 2024-10-29)
PROC: 10907ZC Drainage of Amniotic Fluid, Therapeutic from Products of Conception, Via Natural or Artificial Opening (ICD-10-PCS; 2024-10-29)
PROC: 3E0R3BZ Introduction of Anesthetic Agent into Spinal Canal, Percutaneous Approach (ICD-10-PCS; 2024-10-29)
PROC: 00HU33Z Insertion of Infusion Device into Spinal Canal, Percutaneous Approach (ICD-10-PCS; 2024-10-29)
DX: O13.4 Gestational [pregnancy-induced] hypertension without significant proteinuria, complicating childbirth (principal); Z37.0 Single live birth; O24.420 Gestational diabetes mellitus in childbirth, diet controlled; O70.3 Fourth degree perineal laceration during delivery; Z3A.39 39 weeks gestation of pregnancy; Z87.442 Personal history of urinary calculi
CPT/HCPCS: 36415; 51702; 80053; 81003; 82947; 83615; 85025; 85027; 85384; 85610; 85730; 86850; 86900; 86901; 86923; A9270; J0690; J1885; J2405; J2590; J3010; J3475; J7120

== ENCOUNTER → 2025-08-26 | Outpatient (CLI) | payer BC ==
[~2025-08-26] MED LIST changes: +AMOX875 PO; +CRANBERRY215 MG PO; +DOCU100 PO; +IBU800 MG PO; +K2-D3 MAX 180-1 EACH PO; +LABE100 PO; +MIRALAX17 GM PO; +Norco 5-325 Ta1 EACH PO; +ZYRTEC10 M4 PO
[2025-08-26 18:43] LABS: Bacterial Vaginosis PCR Negative (NEGATIVE); Candida Group, PCR NOT DETECTED (NOT DETECT); Candida glabrata-krusei, PCR NOT DETECTED (NOT DETECT)
== END | disposition home or self-care (01) ==
LOC: LAB SHORT 16:29 → LAB 16:29
PROVIDERS: Physician Assistant
DX: N89.8 Other specified noninflammatory disorders of vagina (principal)
CPT/HCPCS: 81515

== ENCOUNTER 2025-10-02 12:36 | Observation (INO) | payer BC ==
[~2025-10-02] VITALS: Ht 162.6 cm; Wt 66.4 kg
[~2025-10-02 12:36] MED LIST changes: -PRENATAL TABLE1 EAC2; +PRENATAL TABLE1 EAC2 PO
[2025-10-02] MEDS ORDERED: Ketorolac Tromethamine 15mg Vial IV ONE ×2 (12:45→15:05)
[2025-10-02 13:00] LABS: Source, Urine Clean Catch
[2025-10-02] MEDS ORDERED: Ondansetron HCl 2 MG / ML 2ML Vial IV ONE (13:10)
[2025-10-02 13:13] LABS: Bilirubin, Urine Neg (Neg); Glucose Qualitative, Urine Neg (Neg); Ketones, Urine Neg (Neg); Leukocyte Esterase, Urine 1+ (Neg); Protein, Urine Neg (Neg); Specific Gravity, Urine 1.005 (1.003-1.022); Urobilinogen, Urine NORM (Normal)
[2025-10-02 13:20] LABS: Color, Urine Pale Yellow (P-Yellow)
[2025-10-02 13:21] LABS: Red Blood Cells, Urine 0-2 /hpf (0-2)
[2025-10-02 13:23] LABS: BASOPHILS ABSOLUTE AUTO 0.06 K/mm3 (0.00-0.23); BASOPHILS PERCENT AUTO 0 % (0-2); EOSINOPHILS ABSOLUTE AUTO 0.17 K/mm3 (0.00-0.68); EOSINOPHILS PERCENT AUTO 1 % (0-6); Hematocrit 38.3 % (33.0-51.0); Hemoglobin 12.8 g/dL (11.5-16.0); IMMATURE GRAN ABSOLUTE AUTO 0.09 K/mm3 (0.00-0.10); IMMATURE GRAN PERCENT AUTO 1 % (0-1); LYMPHOCYTES ABSOLUTE AUTO 2.82 K/mm3 (0.84-5.20); LYMPHOCYTES PERCENT AUTO 21 % (21-46); MONOCYTES ABSOLUTE AUTO 0.57 K/mm3 (0.16-1.47); MONOCYTES PERCENT AUTO 4 % (4-13); Mean Corpuscular HGB Conc 33.4 g/dL (31.5-36.5); Mean Corpuscular Volume 82 fL (80-100); NEUTROPHILS ABSOLUTE AUTO 10.07 K/mm3 (1.96-9.15); NEUTROPHILS PERCENT AUTO 73 % (41-73); NRBC ABSOLUTE 0.00 K/mm3 (0.00-0.02); NRBC Auto 0.0 /100 WBC (0.0-0.2); Platelet Count 376 K/mm3 (150-400); RDW Coefficient Variation 13.9 % (11.7-14.2); RDW Standard Deviation 40.6 fL (35.1-46.3)
[2025-10-02 13:40] LABS: Alanine Aminotransfer (ALT/SGP 31.0 U/L (12-78); Albumin, Blood 3.6 g/dL (3.4-5.0); Albumin/Globulin Ratio 0.9 (0.8-1.8); Anion Gap 8.0 mmol/L (3-11); Aspartate Aminotrans (AST/SGOT 21.0 U/L (12-37); Bilirubin, Total 0.2 mg/dL (0.1-1.0); Blood Urea Nitrogen 10.0 mg/dL (8-24); CO2, Blood 27.0 mmol/L (21-32); Calcium, Blood 9.0 mg/dL (8.5-10.1); Chloride, Blood 106.0 mmol/L (98-108); Creatinine, Blood 0.69 mg/dL (0.40-1.00); Globulin, Blood 4.0 g/dL (2.2-4.0); Glucose, Blood 107.0 mg/dL (70-99); Potassium, Blood 3.8 mmol/L (3.5-5.5); Sodium, Blood 137.0 mmol/L (136-145); Total Protein, Blood 7.6 g/dL (6.4-8.2)
[2025-10-02] MEDS ORDERED: NS 1,000 ML IV SCH (16:45)
[2025-10-02] MEDS ORDERED: FLU VACC TS2025-26(6MOS UP)/PF 45 MCG/0.5 ML SYRINGE IM SCH (19:00)
[2025-10-02] MEDS ORDERED: Ondansetron HCl 2 MG / ML 2ML Vial IV PRN (19:00)
[2025-10-02] MEDS ORDERED: Ketorolac Tromethamine 15mg Vial IV PRN (19:15)
[2025-10-02 20:17] VITALS: BP 119/73
[2025-10-02] MEDS ORDERED: OMEP20ER PO (20:19)
--- NOTE | 2025-10-03 03:28 | NUR ---
NOC SUMMARY- PT ARRIVED TO FLOOR IN NO DISTRESS. PAIN MANAGED WELL. PT HAS BEEN NPO SINCE [place]. PT VOIDING AND IS AMBULATORY. PT DENIES N/V. PT RESTING QUIETLY. CALL LIGHT IN REACH.
[2025-10-03 04:48] VITALS: BP 105/73
[2025-10-03 05:00] LABS: BASOPHILS ABSOLUTE AUTO 0.06 K/mm3 (0.00-0.23); BASOPHILS PERCENT AUTO 1 % (0-2); EOSINOPHILS ABSOLUTE AUTO 0.21 K/mm3 (0.00-0.68); EOSINOPHILS PERCENT AUTO 2 % (0-6); Hematocrit 38.0 % (33.0-51.0); Hemoglobin 12.4 g/dL (11.5-16.0); IMMATURE GRAN ABSOLUTE AUTO 0.09 K/mm3 (0.00-0.10); IMMATURE GRAN PERCENT AUTO 1 % (0-1); LYMPHOCYTES ABSOLUTE AUTO 3.58 K/mm3 (0.84-5.20); LYMPHOCYTES PERCENT AUTO 34 % (21-46); MONOCYTES ABSOLUTE AUTO 0.57 K/mm3 (0.16-1.47); MONOCYTES PERCENT AUTO 5 % (4-13); Mean Corpuscular HGB Conc 32.6 g/dL (31.5-36.5); Mean Corpuscular Volume 83 fL (80-100); NEUTROPHILS ABSOLUTE AUTO 6.04 K/mm3 (1.96-9.15); NEUTROPHILS PERCENT AUTO 57 % (41-73); NRBC ABSOLUTE 0.00 K/mm3 (0.00-0.02); NRBC Auto 0.0 /100 WBC (0.0-0.2); Platelet Count 343 K/mm3 (150-400); RDW Coefficient Variation 14.0 % (11.7-14.2); RDW Standard Deviation 41.6 fL (35.1-46.3)
[2025-10-03 05:23] LABS: Alanine Aminotransfer (ALT/SGP 186.0 U/L (12-78); Albumin, Blood 2.9 g/dL (3.4-5.0); Albumin/Globulin Ratio 0.8 (0.8-1.8); Anion Gap 8.0 mmol/L (3-11); Aspartate Aminotrans (AST/SGOT 176.0 U/L (12-37); Bilirubin, Total 0.2 mg/dL (0.1-1.0); Blood Urea Nitrogen 11.0 mg/dL (8-24); CO2, Blood 28.0 mmol/L (21-32); Calcium, Blood 8.7 mg/dL (8.5-10.1); Chloride, Blood 108.0 mmol/L (98-108); Creatinine, Blood 0.71 mg/dL (0.40-1.00); Globulin, Blood 3.7 g/dL (2.2-4.0); Glucose, Blood 104.0 mg/dL (70-99); Magnesium, Blood 2.2 mg/dL (1.6-2.4); Potassium, Blood 3.7 mmol/L (3.5-5.5); Sodium, Blood 140.0 mmol/L (136-145); Total Protein, Blood 6.6 g/dL (6.4-8.2)
[2025-10-03 07:13] VITALS: BP 112/72
[2025-10-03] MEDS ORDERED: Lidocaine 4% 1 Patch TOP SCH (09:43)
[2025-10-03] MEDS ORDERED: ALBU90OI INH (10:15)
[2025-10-03] MEDS ORDERED: Metoclopramide HCl 5MG / ML 2ML Vial IV PRN (12:20)
[2025-10-03 15:44] VITALS: BP 111/76
[2025-10-03] MEDS ORDERED: Acetaminophen/Aspirin/Caffeine 250/250/65 MG PO PRN (15:55)
[2025-10-03] MEDS ORDERED: ONDA4 PO (16:48)
[2025-10-03] MEDS ORDERED: OXYC5 PO (16:49)
--- NOTE | 2025-10-03 16:59 | NUR ---
DC INSTRUCT REVIEWED. STATED UNDERSTANDING. DISCHARGED TO POV AMBULATORY WITH PRINTED INSTRUCT AND WITH HANDWRITTEN RX OXYCODONE
== END 2025-10-03 17:08 | disposition home or self-care (01) ==
LOC: ER 12:36 → SURS 12:37 → MEDS 12:37 → SURS 19:43
PROVIDERS: Physician Assistant; ADMIT Student in an Organized Health Care Education/Training Program
DX: R10.31 Right lower quadrant pain (principal); D72.829 Elevated white blood cell count, unspecified; R11.0 Nausea; N83.11 Corpus luteum cyst of right ovary
CPT/HCPCS: 36415; 74177; 76830; 80053; 81001; 81025; 83735; 85025; 87086; 96361; 96374; 96375; 96376; 99285-25; A9270; G0378; J1885; J2405; J2765; J7030; Q9967